=== PATIENT | male | born 1980 | race Caucasian/White ===

== ENCOUNTER 2024-03-25 15:12 | Emergency (ER) | payer OTHER, SELFPAY ==
[2024-03-25 15:17] VITALS: BP 118/78; PULSE 53; RESP 14; TEMP 36.1; O2SAT 99; BMI 38.0
[2024-03-25 15:33] LABS: Appearance Urine Clear (Clear); Bilirubin Urine Negative (Negative); Blood Urine Negative (Negative); Color Urine Yellow (Yellow); Glucose Urine Negative (Negative); Ketones Urine Negative (Negative); Leukocyte Esterase Urine Negative (Negative); Nitrite Urine Negative (Negative); Protein Urine Negative (Negative); Urobilinogen Urine 0.2 (0.2-1.0)
[2024-03-25 15:54] LABS: Bacteria Urine Few; RBC Urine 0-2 (0-2); Squamous Epithelial Cell Urine Few (None-Few); WBC Urine 0-2 (0-5)
--- NOTE | 2024-03-25 16:23 | CRLHL7_ITS ---
For Patients: As a result of the Century Cures Act, medical imaging exams and procedure reports are released immediately into your electronic medical record. You may view this report before your referring provider. If you have questions, please contact your health care provider. Indication: RT SIDED FLANK PAIN Technique: CT abdomen/pelvis without IV contrast. Comparison: None Findings: Lower thorax: Unremarkable Abdomen/pelvis: Severe hepatic steatosis with sparing in the left hepatic lobe and along the gallbladder fossa. The gallbladder and biliary system, spleen, pancreas, adrenal glands, kidneys, ureters, bladder, seminal vesicles, and prostate are normal in appearance. No evidence of bowel obstruction or inflammation. The appendix is normal. Colonic diverticulosis without CT evidence of acute diverticulitis. No free fluid or free air. No abdominopelvic lymphadenopathy. Soft tissue/musculoskeletal: Tiny fat containing umbilical hernia. The osseous structures are unremarkable. Impression: 1. No CT evidence of an acute process involving the abdomen or pelvis. 2. Severe hepatic steatosis. 3. Colonic diverticulosis. Please note that all CT scans at this facility use dose modulation, iterative reconstruction, and/or weight-based dosing when appropriate to reduce radiation dose to as low as reasonably achievable. Dictated by Marito Singh MD @ 03/25/2024 5:13:43 PM (Electronically Signed)
--- NOTE | 2024-03-25 16:49 | ED_ITS ---
HPI - Abdominal Pain General Date Seen: 03/25/24 Chief Complaint: Flank Pain Stated Complaint: Lower back pain-onset 1 hr Time Seen by Provider: 03/25/24 15:55 Source: patient and family Mode of arrival: ambulatory Limitations: no limitations History of Present Illness HPI narrative: Patient is a very nice 43-year-old gentleman who presents here with approximately a 2 to 2-1/2 hour history a right flank pain, with radiation around to these frontal abdominal region, this was associated with inability to get comfortable, and also some nausea, in self induce vomiting. The pain came on while he was getting ready, for his daughter's graduation. Call his , who is at [facility] PACU nurse. In came here for help with this. While he was in the triage area, the pain went away and he has had no pain since. No previous history of any abdominal issues related to renal colic or urolithiasis, he does have a history of diverticulitis in the past. Did not take any medications for this. Denies any fevers chills or sweats admits to me that he did have some looser stools today. While he was waiting in triage and on the way to the hospital he had to urinate just drops a few times. MD elicited complaint: abdominal pain Pertinent past history: diverticulitis Onset (ago): hour(s) Pain Consistency: constant Related Data Home Medications ?Medication ?Instructions ?Recorded ?Confirmed No Known Home Medications 03/25/24 03/25/24 Allergies Allergy/AdvReac Type Severity Reaction Status Date / Time No Known Drug Allergies Allergy Verified 03/25/24 15:17 Review of Systems Status of ROS Reports: 10 or more systems reviewed and unremarkable except as noted in History and below PFSH PFS Social History Smoking Status: Never smoker How often do you have a drink containing alcohol: monthly or less AUDIT-C Alcohol total score: 1 Non-prescribed substance use: denies use Exam Narrative: Exam Narrative: He is seen and stabilization room 2 he is in no apparent distress his pupils equal round reactive to light his sclerae are normal nonicteric his mouth opening is normal chest is good air entry bilaterally heart sounds are normal his abdomen is soft slightly obese, with no guarding no organomegaly bowel sounds are normal he moves all extremities independently and well, no CVA tenderness is noted. Skin reveals no petechiae rashes. Const: Vital Signs, click to edit/add: Vital Signs - 24 hr 03/25/24 15:17 Temperature 97.0 F L Pulse Rate [Pulse Oximeter] 53 L Respiratory Rate 14 Blood Pressure [Ri ght Upper Arm] 118/78 Pulse Oximetry 99 Oxygen Delivery Me thod Room Air Documenting provider has reviewed patient's vital signs: yes Course Course ED Course: I discussed with the patient that his CT scan was read as negative, clearly can see some very mild hydronephrosis on the right side, along with us 1-2 mm stone in his bladder, all consistent with a recently passed stone. I also talked to him about his hepatic steatosis which is seen on the CT. And about treatment for this. Would follow up with primary care. Vital Signs Vital signs: Initial Vital Signs Temperature 97.0 F L 03/25/24 15:17 Temperature Source Temporal Artery Scan 03/25/24 15:17 Pulse Rate 53 L 03/25/24 15:17 Pulse Rhythm Regular 03/25/24 15:17 Respiratory Rate 14 03/25/24 15:17 Blood Pressure 118/78 03/25/24 15:17 Blood Pressure Mean 91 03/25/24 15:17 Pulse Oximetry 99 03/25/24 15:17 Oxygen Delivery Method Room Air 03/25/24 15:17 Vital Signs Temperature 97.0 F L 03/25/24 15:17 Pulse Rate 53 L 03/25/24 15:17 Respiratory Rate 14 03/25/24 15:17 Blood Pressure 118/78 03/25/24 15:17 Pulse Oximetry 99 03/25/24 15:17 Oxygen Delivery Method Room Air 03/25/24 15:17 Temperature 97.0 F L 03/25/24 15:17 Pulse Rate 53 L 03/25/24 15:17 Respiratory Rate 14 03/25/24 15:17 Blood Pressure 118/78 03/25/24 15:17 Pulse Oximetry 99 03/25/24 15:17 Oxygen Delivery Method Room Air 03/25/24 15:17 MDM - Abdominal Pain MDM Narrative Medical decision making narrative: During this evaluation of this patient I considered multiple differential diagnosis is which included the life-threatening such as appendicitis, aortic aneurysm, mesenteric ischemia, bowel perforation, volvulus, and bowel obstruction. Other differential diagnosis is include but are not limited to cholecystitis, pancreatitis, hepatitis, gastritis, GERD, diverticulitis, peptic ulcer disease, pyelonephritis/UTI, renal colic/stone, testicular torsion as well as other acute scrotal processes, inflammatory bowel disease, as well as other etiologies Given he has absolutely no pain now, I think would be reasonable do a CT to for look for the stone. Urinalysis is also pending. I do not think we need to do blood tests is young healthy gentleman, no chronic medications. Medical Records Attestation: I reviewed the patient's medical records. Lab Data Attestation: I reviewed the patient's lab results. Labs: Lab Results 03/25/24 Range/Units 15:25 Urine Color Yellow (Yellow) Urine Appearance Clear (Clear) Urine pH 7.0 (5.0-8.5) Ur Specific [place] 1.020 (1.000-1.030) Urine Protein Negative (Negative) Urine Glucose (UA) Negative (Negative) Urine Ketones Negative (Negative) Urine Blood Negative (Negative) Urine Nitrite Negative (Negative) Urine Bilirubin Negative (Negative) Urine Urobilinogen 0.2 (0.2-1.0) Ur Leukocyte Esterase Negative (Negative) Urine RBC 0-2 (0-2) Urine WBC 0-2 (0-5) Ur Squamous Epith Cells Few (None-Few) Urine Bacteria Few A (None) Imaging Data CT scan - abdomen: Attestation: I have reviewed the pertinent imaging results. My impression: Very mild right-sided hydronephrosis, his seems to be calcification in the bladder which likely is a 1-2 mm stone. This is correlating with a recently passed urolithiasis Discharge Plan Discharge Clinical Impression: Renal colic on right side Patient Disposition: Home w/ Parent or Adult Condition: Improved Instructions: Renal Colic (ED) Additional Instructions: I do not see future ER visits in your kidneys. Urinalysis was entirely normal. I think it would be reasonable let her go home you can use some ibuprofen if he of ongoing pain once the stone is in your bladder which it seems to be, he should be really nonpainful in passing it. Lots of fluids, avoidance of pop, and nuts. Follow-up of ongoing pain, fevers chills or other abnormality. Activity Level: Light activity Discharge Diet: Regular Prescriptions: No Action No Known Home Medications Stand Alone Forms: Everyone Counts Info Instructions
[2024-03-25 17:43] VITALS: BP 118/78; PULSE 53; RESP 14; TEMP 36.1
== END 2024-03-25 17:43 | disposition home or self-care (01) ==
PROVIDERS: Emergency Provider Family Medicine; PCP Family Medicine
DX: N23 Unspecified renal colic (principal)
CPT/HCPCS: 74176; 81001; 87086; 99284